=== PATIENT | female | born 1995 | race African-American/Black ===

== ENCOUNTER 2024-12-18 07:21 | Emergency (ER) | payer SELFPAY ==
[~2024-12-18] VITALS: Ht 162.6 cm; Wt 63.5 kg
[2024-12-18] MEDS ORDERED: KETOROLAC TROMETHAMINE 15 MG/ML VIAL ONE (07:58)
[2024-12-18] MEDS: KETOROLAC TROMETHAMINE 15 MG/ML VIAL IM ONE (08:08)
[2024-12-18] MEDS ORDERED: IBUP-1955 PO (08:53)
[2024-12-18 09:26] VITALS: BP 122/84; TEMP 98.9; O2SAT 98
== END 2024-12-18 09:29 | disposition home or self-care (01) ==
LOC: ER 07:38
DX: S53.491A Other sprain of right elbow, initial encounter (principal); S43.491A Other sprain of right shoulder joint, initial encounter; F41.9 Anxiety disorder, unspecified; F32.A Depression, unspecified; J45.909 Unspecified asthma, uncomplicated; W01.0XXA Fall on same level from slipping, tripping and stumbling without subsequent striking against object, initial encounter; Y93.89 Activity, other specified; Y92.89 Other specified places as the place of occurrence of the external cause; Y99.8 Other external cause status
CPT/HCPCS: 29105; 73030; 73080; 96372; 99284; J1885